=== PATIENT | female | born 2000 | race Two or more races ===

== ENCOUNTER 2022-07-06 05:18 | Emergency (ER) | payer SELFPAY ==
[2022-07-06] MEDS ORDERED: morphine CARPU-JECT 4 MG/1 ML DISP.SYRIN IVPUSH ONE (05:20)
[2022-07-06] MEDS ORDERED: morphine SULFATE 4 MG/ML VIAL IVPUSH ONE (05:20)
[2022-07-06] MEDS ORDERED: SODIUM CHLORIDE 0.9% 500 ML INFUS.BAG IV ONE (05:20)
[2022-07-06] MEDS ORDERED: ONDANSETRON 4 MG/2 ML VIAL IVPUSH ONE (05:20)
[2022-07-06 05:31] VITALS: BP 108/64; PULSE 84; RESP 20; TEMP 98.8; BMI 23.6
[2022-07-06 06:07] LABS: BASO % 0.5 % (0-2.0); EOS % 1.2 % (0-4.5); HEMATOCRIT 43.4 % (32.4-45.2); HEMOGLOBIN 14.7 GM/dL (10.7-15.3); LYMPH % 32.7 % (8-40); MCH 29.7 pg (25.7-33.7); MCHC 33.9 g/dl (32.0-36.0); MEAN CELL VOLUME 87.8 fl (80-96); MEAN PLT VOLUME 10.3 fl (7.5-11.1); MONO % 4.7 % (3.8-10.2); NEUT % 60.9 % (42.8-82.8); PLATELET COUNT 267 10^3/uL (134-434); RBC 4.94 M/mm3 (3.60-5.2); RDW 13.4 % (11.6-15.6); WHITE BLOOD COUNT 8.9 K/mm3 (4.0-10.0)
[2022-07-06 06:24] LABS: ALBUMIN 4.1 g/dl (3.4-5.0); BLOOD UREA NITROGEN 12.3 mg/dL (7-18); CALCIUM 9.5 mg/dL (8.5-10.1)
[2022-07-06] MEDS ORDERED: KETOROLAC TROMETHAMINE 15 MG/ML VIAL IVPUSH ONE (06:26)
[2022-07-06] MEDS ORDERED: KETOROLAC TROMETHAMINE 15 MG/ML VIAL ONE (06:26)
[2022-07-06 06:28] LABS: BILIRUBIN,TOTAL 0.3 mg/dL (0.2-1); CREATININE 0.7 mg/dL (0.55-1.3); TOT PROT 7.4 g/dl (6.4-8.2)
[2022-07-06 12:33] LABS: EPI CELLS >36 /uL (0-25.1); HYALINE CASTS 1 /uL (0-3.1); URINE APPEARANCE CLOUDY; URINE BACTERIA 1692 /uL (0-1359); URINE BILIRUBIN NEGATIVE (NEGATIVE); URINE COLOR YELLOW; URINE GLUCOSE (UA) NEGATIVE (NEGATIVE); URINE KETONE 1+ (NEGATIVE); URINE LEUK ESTERASE NEGATIVE (NEGATIVE); URINE NITRITE POSITIVE (NEGATIVE); URINE PROTEIN NEGATIVE (NEGATIVE); URINE RBC 6 /uL (0-23.9); URINE WBC 9 /uL (0-25.8)
[2022-07-06] MEDS ORDERED: CEPHALEXIN MONOHYDRATE 500 MG CAPSULE (UD) PO ONE (13:00)
[2022-07-06] MEDS ORDERED: CEPHALEXIN MONOHYDRATE 500 MG CAPSULE (UD) ONE (13:02)
== END 2022-07-06 14:24 | disposition home or self-care (01) ==
LOC: JER 05:18
PROC: 3E0333Z Introduction of Anti-inflammatory into Peripheral Vein, Percutaneous Approach (ICD-10-PCS; principal; 2022-07-06)
PROC: 3E033NZ Introduction of Analgesics, Hypnotics, Sedatives into Peripheral Vein, Percutaneous Approach (ICD-10-PCS; 2022-07-06)
PROC: 3E033GC Introduction of Other Therapeutic Substance into Peripheral Vein, Percutaneous Approach (ICD-10-PCS; 2022-07-06)
DX: R10.32 Left lower quadrant pain (principal)
CPT/HCPCS: 36415; 74176-TC; 76830-TC; 80053; 81003; 84703; 85025; 87086; 87186; 99285-25

== ENCOUNTER 2022-07-07 14:29 | Inpatient (IN) | payer OTHER ==
[2022-07-07 14:52] VITALS: RESP 18; BMI 21.4
[2022-07-07] MEDS ORDERED: ONDANSETRON 4 MG/2 ML VIAL IVPUSH ONE (15:26)
[2022-07-07] MEDS ORDERED: ACETAMINOPHEN 1000 MG/100 ML BAG IVPB ONE (15:26)
[2022-07-07] MEDS ORDERED: ONDANSETRON 4 MG/2 ML VIAL ONE (15:30)
[2022-07-07] MEDS ORDERED: ACETAMINOPHEN INJECTION 100 ML IVPB ONE (15:30)
[2022-07-07 15:57] LABS: BASO % 0.3 % (0-2.0); EOS % 0.5 % (0-4.5); HEMATOCRIT 42.5 % (32.4-45.2); HEMOGLOBIN 14.4 GM/dL (10.7-15.3); MCH 30.3 pg (25.7-33.7); MCHC 33.9 g/dl (32.0-36.0); MEAN CELL VOLUME 89.4 fl (80-96); MEAN PLT VOLUME 9.6 fl (7.5-11.1); MONO % 4.6 % (3.8-10.2); NEUT % 85.6 % (42.8-82.8); PLATELET COUNT 241 10^3/uL (134-434); RBC 4.75 M/mm3 (3.60-5.2); RDW 13.5 % (11.6-15.6); WHITE BLOOD COUNT 11.4 K/mm3 (4.0-10.0)
[2022-07-07 16:13] LABS: CHLORIDE 106 mmol/L (98-107); SODIUM 139 mmol/L (136-145)
[2022-07-07 16:15] LABS: ALBUMIN 3.9 g/dl (3.4-5.0); ANION GAP 7 MMOL/L (8-16); CO2 26 mmol/L (21-32); GLUCOSE,RANDOM 87 mg/dL (74-106)
[2022-07-07 16:16] LABS: LIPASE 68 U/L (73-393)
[2022-07-07 16:19] LABS: CREATININE 0.6 mg/dL (0.55-1.3); SGOT/AST 101 U/L (15-37); SGPT/ALT 49 U/L (13-61)
[2022-07-07 16:20] LABS: BILIRUBIN,TOTAL 1.4 mg/dL (0.2-1); TOT PROT 7.4 g/dl (6.4-8.2)
[2022-07-07 16:22] LABS: ALK PHOS 86 U/L (45-117)
[2022-07-07] MEDS ORDERED: morphine CARPU-JECT 4 MG/1 ML DISP.SYRIN IVPUSH ONE (16:25)
[2022-07-07] MEDS ORDERED: morphine SULFATE 4 MG/ML VIAL ONE (16:27)
[2022-07-07 17:03] LABS: EPI CELLS >36 /uL (0-25.1); HYALINE CASTS 0 /uL (0-3.1); URINE APPEARANCE CLOUDY; URINE BACTERIA 2412 /uL (0-1359); URINE BILIRUBIN NEGATIVE (NEGATIVE); URINE COLOR YELLOW; URINE GLUCOSE (UA) NEGATIVE (NEGATIVE); URINE KETONE NEGATIVE (NEGATIVE); URINE LEUK ESTERASE 1+ (NEGATIVE); URINE NITRITE NEGATIVE (NEGATIVE); URINE PROTEIN NEGATIVE (NEGATIVE); URINE RBC 6 /uL (0-23.9); URINE WBC 54 /uL (0-25.8)
[2022-07-07] MEDS ORDERED: SODIUM CHLORIDE 0.9% 500 ML INFUS.BAG IV ONE ×3 (18:51→21:15)
[2022-07-07] MEDS ORDERED: CEFTRIAXONE 1,000 MG in DEXTROSE 5%-WATER - 50 ML IVPB ONE (18:51)
[2022-07-07] MEDS ORDERED: CEFTRIAXONE 1 GM/50 ML BAG ONE (19:08)
[2022-07-07 19:25] LABS: PH,URINE 7.5 (5.0-8.0); URINE APPEARANCE CLEAR; URINE BILIRUBIN NEGATIVE (NEGATIVE); URINE COLOR YELLOW; URINE GLUCOSE (UA) NEGATIVE (NEGATIVE); URINE KETONE NEGATIVE (NEGATIVE); URINE LEUK ESTERASE NEGATIVE (NEGATIVE); URINE NITRITE NEGATIVE (NEGATIVE); URINE PROTEIN NEGATIVE (NEGATIVE)
[2022-07-07] MEDS ORDERED: ACETAMINOPHEN 1000 MG/100 ML BAG IVPB PRN (22:37)
[2022-07-07] MEDS ORDERED: SODIUM CHLORIDE 1,000 ML IV SCH (22:45)
[2022-07-07] MEDS ORDERED: ONDANSETRON 4 MG/2 ML VIAL IVPUSH PRN (23:12)
[2022-07-07] MEDS: SODIUM CHLORIDE 1,000 ML IV SCH (23:21)
[2022-07-08] MEDS: SODIUM CHLORIDE 1,000 ML IV SCH (07:28)
[2022-07-08] MEDS ORDERED: SODIUM CHLORIDE 1,000 ML IV STA (09:04)
[2022-07-08] MEDS ORDERED: cefTRIAXone SODIUM 1 GM VIAL ONE (09:06)
[2022-07-08] MEDS ORDERED: CEFTRIAXONE 1 GM in DEXTROSE 5%-WATER - 50 ML IVPB SCH (10:00)
[2022-07-08 10:41] LABS: HEMATOCRIT 36.6 % (32.4-45.2); HEMOGLOBIN 12.2 GM/dL (10.7-15.3); MCH 29.5 pg (25.7-33.7); MCHC 33.2 g/dl (32.0-36.0); MEAN CELL VOLUME 88.9 fl (80-96); MEAN PLT VOLUME 10.1 fl (7.5-11.1); PLATELET COUNT 199 10^3/uL (134-434); RBC 4.12 M/mm3 (3.60-5.2); RDW 13.6 % (11.6-15.6); WHITE BLOOD COUNT 8.5 K/mm3 (4.0-10.0)
[2022-07-08 10:59] LABS: BLOOD UREA NITROGEN 4.4 mg/dL (7-18); CALCIUM 7.9 mg/dL (8.5-10.1)
[2022-07-08 11:01] LABS: CREATININE 0.4 mg/dL (0.55-1.3)
[2022-07-08 11:04] LABS: TOT PROT 5.9 g/dl (6.4-8.2)
[2022-07-08] MEDS ORDERED: ONDANSETRON 4 MG/2 ML VIAL IVPUSH PRN ×2 (11:48→13:43)
[2022-07-08] MEDS ORDERED: LACTATED RINGERS SOLUTION 1,000 ML IV SCH (12:00)
[2022-07-08] MEDS ORDERED: HEPARIN NA (PORCINE) 5,000 UNITS/ML 1ML VIAL ONE (12:02)
[2022-07-08] MEDS ORDERED: PROPOFOL 20 ML ONE (12:12)
[2022-07-08] MEDS ORDERED: MIDAZOLAM HCL 2 MG/2 ML SINGLE DOSE VIAL ONE (12:12)
[2022-07-08] MEDS ORDERED: ROCURONIUM BROMIDE 50 MG/5 ML SYRINGE ONE (12:12)
[2022-07-08] MEDS ORDERED: DEXAMETHASONE SOD PHOSPHATE 4 MG/1 ML VIAL ONE (12:23)
[2022-07-08] MEDS ORDERED: ONDANSETRON 4 MG/2 ML VIAL ONE (12:23)
[2022-07-08] MEDS ORDERED: BUPIVACAINE HCL/PF 0.25% (2.5MG/ML) 10 ML VIAL ONE ×2 (12:31→12:38)
[2022-07-08] MEDS ORDERED: BUPIVACAINE HCL/PF 0.25% (2.5MG/ML) 10 ML VIAL IJ ONE (12:35)
[2022-07-08] MEDS ORDERED: GLYCOPYRROLATE 0.2 MG/1 ML VIAL ONE (13:22)
[2022-07-08] MEDS ORDERED: NEOSTIGMINE METHYLSULFATE 0.5 MG/ML - 10 ML MDV ONE (13:22)
[2022-07-08] MEDS ORDERED: KETOROLAC TROMETHAMINE 30 MG/1 ML VIAL IVPUSH SCH ×2 (13:30→19:30)
[2022-07-08] MEDS ORDERED: ACETAMINOPHEN 1000 MG/100 ML BAG IVPB PRN (13:43)
[2022-07-08] MEDS ORDERED: SODIUM CHLORIDE 1,000 ML IV SCH (13:43)
[2022-07-08] MEDS ORDERED: ACETAMINOPHEN 1000 MG/100 ML BAG IVPB ONE (23:27)
[2022-07-09] MEDS ORDERED: INSULIN (NOVOLOG) ASPART 100 UNITS/ML 10ML VIAL ONE (06:55)
[2022-07-09] MEDS ORDERED: KETOROLAC TROMETHAMINE 30 MG/1 ML VIAL IVPUSH ONE (10:25)
[2022-07-09] MEDS ORDERED: oxyCODONE HCL 5 MG TABLET PO PRN (11:12)
[2022-07-09] MEDS ORDERED: ACETAMINOPHEN 325 MG TABLET (FP) PO SCH (12:00)
[2022-07-09 13:22] VITALS: BP 103/51; PULSE 74; TEMP 97.5
== END 2022-07-09 15:59 | disposition home or self-care (01) | DRG 263 ==
LOC: JER 14:29 → JERBED 18:51 → J6S 07-08 02:54
PROVIDERS: ADMIT Internal Medicine
PROC: 0FT44ZZ Resection of Gallbladder, Percutaneous Endoscopic Approach (ICD-10-PCS; principal; 2022-07-08 11:00)
DX: K80.12 Calculus of gallbladder with acute and chronic cholecystitis without obstruction (principal); N83.202 Unspecified ovarian cyst, left side; D72.829 Elevated white blood cell count, unspecified; R74.01 Elevation of levels of liver transaminase levels; R94.5 Abnormal results of liver function studies; R33.9 Retention of urine, unspecified; F17.200 Nicotine dependence, unspecified, uncomplicated
CPT/HCPCS: 36415; 71046-TC-FY; 76705-TC; 80053; 81003; 83690; 84484; 85025; 85027; 87086; 88304-TC; 93005; 93010; 94760; 99285-25; C9803-CS; J1644; U0003; U0005

== ENCOUNTER 2023-02-09 16:50 | Emergency (ER) | payer OTHER ==
[2023-02-09 17:00] VITALS: BP 107/58; PULSE 80; RESP 20; TEMP 98.2; BMI 25.6
[2023-02-09] MEDS ORDERED: SODIUM CHLORIDE 0.9% 500 ML INFUS.BAG IV ONE (19:02)
[2023-02-09] MEDS ORDERED: ACETAMINOPHEN 1000 MG/100 ML BAG IVPB ONE (19:02)
[2023-02-09] MEDS ORDERED: ACETAMINOPHEN INJECTION 100 ML IVPB ONE (19:20)
[2023-02-09 19:40] LABS: EOS % 5.3 % (0-4.5); HEMATOCRIT 40.6 % (32.4-45.2); HEMOGLOBIN 13.8 GM/dL (10.7-15.3); LYMPH % 42.1 % (8-40); MCH 29.1 pg (25.7-33.7); MCHC 34.1 g/dl (32.0-36.0); MEAN CELL VOLUME 85.2 fl (80-96); MEAN PLT VOLUME 9.5 fl (7.5-11.1); MONO % 8.1 % (3.8-10.2); NEUT % 43.5 % (42.8-82.8); PLATELET COUNT 244 10^3/uL (134-434); RBC 4.76 M/mm3 (3.60-5.2); RDW 14.8 % (11.6-15.6); WHITE BLOOD COUNT 6.6 K/mm3 (4.0-10.0)
[2023-02-09 19:48] LABS: HCG,QUALITATIVE URINE Negative
[2023-02-09 19:50] LABS: EPI CELLS >36 /uL (0-25.1); HYALINE CASTS 0 /uL (0-3.1); URINE APPEARANCE CLOUDY; URINE BACTERIA >9,000 /uL (0-1359); URINE BILIRUBIN NEGATIVE (NEGATIVE); URINE COLOR DK YELLOW; URINE GLUCOSE (UA) NEGATIVE (NEGATIVE); URINE KETONE NEGATIVE (NEGATIVE); URINE LEUK ESTERASE 2+ (NEGATIVE); URINE NITRITE POSITIVE (NEGATIVE); URINE PROTEIN NEGATIVE (NEGATIVE); URINE RBC 23 /uL (0-23.9); URINE WBC 124 /uL (0-25.8)
[2023-02-09 20:01] LABS: CHLORIDE 105 mmol/L (98-107); SODIUM 137 mmol/L (136-145)
[2023-02-09 20:03] LABS: CALCIUM 9.4 mg/dL (8.5-10.1); GLUCOSE,RANDOM 81 mg/dL (74-106)
[2023-02-09 20:04] LABS: ALBUMIN 4.3 g/dl (3.4-5.0); ANION GAP 4 MMOL/L (8-16); BLOOD UREA NITROGEN 14.1 mg/dL (7-18); CO2 27 mmol/L (21-32)
[2023-02-09] MEDS ORDERED: CEFTRIAXONE 1,000 MG in DEXTROSE 5%-WATER - 50 ML IVPB ONE (20:04)
[2023-02-09 20:07] LABS: CREATININE 0.6 mg/dL (0.55-1.3); SGOT/AST 14 U/L (15-37); SGPT/ALT 20 U/L (13-61)
[2023-02-09 20:08] LABS: BILIRUBIN,TOTAL 0.6 mg/dL (0.2-1)
[2023-02-09 20:10] LABS: ALK PHOS 61 U/L (45-117)
[2023-02-09] MEDS ORDERED: CEFTRIAXONE 1 GM/50 ML BAG ONE (20:26)
== END 2023-02-09 23:27 | disposition home or self-care (01) ==
LOC: JER 16:50
PROC: 3E03329 Introduction of Other Anti-infective into Peripheral Vein, Percutaneous Approach (ICD-10-PCS; principal; 2023-02-09)
PROC: 3E033GC Introduction of Other Therapeutic Substance into Peripheral Vein, Percutaneous Approach (ICD-10-PCS; 2023-02-09)
DX: N39.0 Urinary tract infection, site not specified (principal); K52.9 Noninfective gastroenteritis and colitis, unspecified; R10.30 Lower abdominal pain, unspecified
CPT/HCPCS: 36415; 74177-TC; 80053; 81003; 84702; 84703; 85025; 87086; 87186; 99285-25; Q9967

== ENCOUNTER 2023-02-10 21:21 | Emergency (ER) | payer OTHER ==
[2023-02-10 21:38] VITALS: BP 116/68; PULSE 86; RESP 18; TEMP 98.1; BMI 21.9
[2023-02-10] MEDS ORDERED: ACETAMINOPHEN 325 MG TABLET (FP) PO ONE (22:01)
[2023-02-10] MEDS ORDERED: ONDANSETRON *ODT* 4 MG TABLET SL ONE (22:01)
[2023-02-10] MEDS ORDERED: ONDANSETRON *ODT* 4 MG TABLET ONE (22:14)
[2023-02-10] MEDS ORDERED: ACETAMINOPHEN 325 MG TABLET (FP) ONE (22:14)
[2023-02-10] MEDS ORDERED: SULFAMETHOXAZOLE/TRIMETHOPRIM 800MG/160MG D.S. TABLET PO ONE (22:37)
[2023-02-10] MEDS ORDERED: SULFAMETHOXAZOLE/TRIMETHOPRIM 800MG/160MG D.S. TABLET ONE (22:45)
== END 2023-02-11 00:27 | disposition home or self-care (01) ==
LOC: JER 21:21
DX: R10.30 Lower abdominal pain, unspecified (principal); R11.0 Nausea
CPT/HCPCS: 76830-TC; 99284-25; Q0162

== ENCOUNTER 2023-05-09 01:53 | Emergency (ER) | payer OTHER ==
[2023-05-09 02:09] VITALS: BP 108/68; PULSE 78; RESP 18; TEMP 98.5; BMI 24.1
[2023-05-09] MEDS ORDERED: SODIUM CHLORIDE 1,000 ML IV STA (03:06)
[2023-05-09] MEDS ORDERED: FAMOTIDINE 20 MG/50 ML IVPB 20 MG/50 ML MG IVPB ONE (03:06)
[2023-05-09] MEDS ORDERED: ACETAMINOPHEN 1000 MG/100 ML BAG IVPB ONE (03:06)
[2023-05-09] MEDS ORDERED: ACETAMINOPHEN INJECTION 100 ML IVPB ONE (03:10)
[2023-05-09] MEDS ORDERED: FAMOTIDINE 10 MG/ML VIAL IVPB ONE (03:11)
[2023-05-09 03:43] LABS: BASO % 0.4 % (0-2.0); EOS % 3.2 % (0-4.5); HEMATOCRIT 41.9 % (32.4-45.2); HEMOGLOBIN 14.6 GM/dL (10.7-15.3); LYMPH % 34.2 % (8-40); MCHC 34.8 g/dl (32.0-36.0); MEAN PLT VOLUME 8.9 fl (7.5-11.1); MONO % 6.1 % (3.8-10.2); NEUT % 56.1 % (42.8-82.8); PLATELET COUNT 273 10^3/uL (134-434); RBC 4.87 M/mm3 (3.60-5.2); RDW 13.8 % (11.6-15.6); WHITE BLOOD COUNT 8.7 K/mm3 (4.0-10.0)
[2023-05-09 03:49] LABS: INR 1.07 (0.83-1.09); PROTHROMBIN TIME (PATIENT) 12.4 SEC (9.7-13.0)
[2023-05-09 03:52] LABS: ACTIVATED PTT 32.8 SECONDS (25.2-36.5)
[2023-05-09 04:04] LABS: CHLORIDE 106 mmol/L (98-107); POTASSIUM 4.5 mmol/L (3.5-5.1); SODIUM 138 mmol/L (136-145)
[2023-05-09 04:06] LABS: CALCIUM 9.4 mg/dL (8.5-10.1); GLUCOSE,RANDOM 84 mg/dL (74-106); LIPASE 97 U/L (73-393)
[2023-05-09 04:07] LABS: ALBUMIN 4.2 g/dl (3.4-5.0); ANION GAP 7 MMOL/L (8-16); BLOOD UREA NITROGEN 11.3 mg/dL (7-18); CO2 24 mmol/L (21-32)
[2023-05-09 04:09] LABS: CREATININE 0.7 mg/dL (0.55-1.3); SGOT/AST 22 U/L (15-37); SGPT/ALT 22 U/L (13-61)
[2023-05-09 04:11] LABS: BILIRUBIN,TOTAL 0.6 mg/dL (0.2-1)
[2023-05-09 04:13] LABS: ALK PHOS 64 U/L (45-117)
[2023-05-09] MEDS ORDERED: SUCRALFATE 1 GM TABLET (FP) PO STA (04:34)
[2023-05-09] MEDS ORDERED: SUCRALFATE 1 GM TABLET (FP) ONE (04:56)
[2023-05-09 05:30] LABS: EPI CELLS >36 /uL (0-25.1); HYALINE CASTS 1 /uL (0-3.1); PH,URINE 5.5 (5.0-8.0); URINE APPEARANCE CLEAR; URINE BACTERIA >9,000 /uL (0-1359); URINE BILIRUBIN NEGATIVE (NEGATIVE); URINE COLOR YELLOW; URINE GLUCOSE (UA) NEGATIVE (NEGATIVE); URINE KETONE TRACE (NEGATIVE); URINE LEUK ESTERASE TRACE (NEGATIVE); URINE NITRITE NEGATIVE (NEGATIVE); URINE PROTEIN NEGATIVE (NEGATIVE); URINE RBC 18 /uL (0-23.9); URINE UROBILINOGEN 0.2 mg/dL (0.2-1.0); URINE WBC 45 /uL (0-25.8)
[2023-05-09] MEDS ORDERED: CEFTRIAXONE 1,000 MG in DEXTROSE 5%-WATER - 50 ML IVPB ONE (05:54)
[2023-05-09] MEDS ORDERED: CEFTRIAXONE 1 GM/50 ML BAG ONE (06:09)
== END 2023-05-09 06:50 | disposition home or self-care (01) ==
LOC: JER 01:53
PROC: 3E03329 Introduction of Other Anti-infective into Peripheral Vein, Percutaneous Approach (ICD-10-PCS; principal; 2023-05-09)
PROC: 3E033GC Introduction of Other Therapeutic Substance into Peripheral Vein, Percutaneous Approach (ICD-10-PCS; 2023-05-09)
PROC: 3E033GC Introduction of Other Therapeutic Substance into Peripheral Vein, Percutaneous Approach (ICD-10-PCS; 2023-05-09)
PROC: 3E0337Z Introduction of Electrolytic and Water Balance Substance into Peripheral Vein, Percutaneous Approach (ICD-10-PCS; 2023-05-09)
DX: R10.31 Right lower quadrant pain (principal); R10.32 Left lower quadrant pain; R11.2 Nausea with vomiting, unspecified; R42 Dizziness and giddiness
CPT/HCPCS: 36415; 74177-TC; 80053; 81003; 83605; 83690; 84702; 85025; 85610; 85730; 86850; 86900; 86901; 87086; 87186; 93005; 93010; 99285-25; Q9967

== ENCOUNTER 2023-06-11 18:11 | Emergency (ER) | payer OTHER ==
[2023-06-11 18:16] VITALS: BP 106/73; PULSE 73; RESP 18; TEMP 98.6; BMI 23.8
[2023-06-11 21:17] LABS: EPI CELLS >36 /uL (0-25.1); HYALINE CASTS 0 /uL (0-3.1); URINE APPEARANCE CLEAR; URINE BACTERIA >9,000 /uL (0-1359); URINE BILIRUBIN NEGATIVE (NEGATIVE); URINE COLOR YELLOW; URINE GLUCOSE (UA) NEGATIVE (NEGATIVE); URINE KETONE NEGATIVE (NEGATIVE); URINE LEUK ESTERASE TRACE (NEGATIVE); URINE NITRITE NEGATIVE (NEGATIVE); URINE PROTEIN NEGATIVE (NEGATIVE); URINE RBC 8 /uL (0-23.9); URINE UROBILINOGEN 0.2 mg/dL (0.2-1.0); URINE WBC 29 /uL (0-25.8)
[2023-06-11] MEDS ORDERED: ONDANSETRON *ODT* 4 MG TABLET SL ONE (21:35)
[2023-06-11] MEDS ORDERED: ONDANSETRON *ODT* 4 MG TABLET ONE (21:40)
[2023-06-11] MEDS ORDERED: NITROFURANTOIN MACROCRYSTAL 50 MG CAPSULE (FP) ONE (21:40)
[2023-06-11] MEDS ORDERED: NITROFURANTOIN MACROCRYSTAL 50 MG CAPSULE (FP) PO ONE (21:45)
== END 2023-06-11 21:47 | disposition home or self-care (01) ==
LOC: JER 18:11
DX: R11.2 Nausea with vomiting, unspecified (principal); N39.0 Urinary tract infection, site not specified; R31.9 Hematuria, unspecified; G43.909 Migraine, unspecified, not intractable, without status migrainosus
CPT/HCPCS: 81003; 84703; 99283-25; Q0162

== ENCOUNTER 2023-12-09 19:20 | Emergency (ER) | payer SELFPAY ==
[2023-12-09 19:33] VITALS: BP 110/58; PULSE 83; RESP 16; TEMP 98.2; BMI 23.8
[2023-12-09] MEDS ORDERED: ACETAMINOPHEN 325 MG TABLET (FP) ONE (20:04)
[2023-12-09] MEDS ORDERED: ACETAMINOPHEN 500 MG TABLET (FP) ONE (20:09)
[2023-12-09] MEDS: ACETAMINOPHEN 500 MG TABLET (FP) PO ONE (20:25)
[2023-12-09 20:32] LABS: HCG,QUALITATIVE URINE Positive
[2023-12-09 20:33] LABS: URINE APPEARANCE CLEAR; URINE BILIRUBIN NEGATIVE (NEGATIVE); URINE COLOR YELLOW; URINE GLUCOSE (UA) NEGATIVE (NEGATIVE); URINE KETONE NEGATIVE (NEGATIVE); URINE LEUK ESTERASE NEGATIVE (NEGATIVE); URINE NITRITE NEGATIVE (NEGATIVE); URINE PROTEIN NEGATIVE (NEGATIVE)
[2023-12-09 20:39] LABS: BASO % 0.4 % (0-2.0); EOS % 1.6 % (0-4.5); HEMATOCRIT 40.8 % (32.4-45.2); HEMOGLOBIN 13.7 GM/dL (10.7-15.3); LYMPH % 34.7 % (8-40); MCH 29.9 pg (25.7-33.7); MCHC 33.5 g/dl (32.0-36.0); MEAN CELL VOLUME 89.4 fl (80-96); MEAN PLT VOLUME 9.3 fl (7.5-11.1); MONO % 6.8 % (3.8-10.2); NEUT % 56.5 % (42.8-82.8); PLATELET COUNT 265 10^3/uL (134-434); RBC 4.57 M/mm3 (3.60-5.2); RDW 14.6 % (11.6-15.6); WHITE BLOOD COUNT 8.2 K/mm3 (4.0-10.0)
[2023-12-09 20:58] LABS: POTASSIUM 3.8 mmol/L (3.5-5.1)
[2023-12-09 21:06] LABS: BILIRUBIN,TOTAL 0.6 mg/dL (0.2-1)
[2023-12-09 21:11] LABS: ALBUMIN 3.9 g/dl (3.4-5.0); CALCIUM 8.9 mg/dL (8.5-10.1)
[2023-12-09 21:12] LABS: BLOOD UREA NITROGEN 8.4 mg/dL (7-18)
[2023-12-09 21:14] LABS: CREATININE 0.7 mg/dL (0.55-1.3)
[2023-12-09 21:16] LABS: TOT PROT 7.5 g/dl (6.4-8.2)
== END 2023-12-10 00:15 | disposition home or self-care (01) ==
LOC: JER 19:20 → JERFT 19:20
DX: O20.9 Hemorrhage in early pregnancy, unspecified (principal); Z3A.01 Less than 8 weeks gestation of pregnancy
CPT/HCPCS: 36415; 76817-TC; 80053; 81003; 84702; 84703; 85025; 86850; 86900; 86901; 87077; 87086; 87186; 99284-25

== ENCOUNTER 2023-12-12 10:35 | Emergency (ER) | payer SELFPAY ==
[2023-12-12 10:48] VITALS: BP 118/74; PULSE 77; RESP 16; TEMP 98.5
[2023-12-12 10:53] VITALS: BMI 22.7
== END 2023-12-12 12:46 | disposition home or self-care (01) ==
LOC: JER 10:35 → JERFT 10:35
DX: O26.891 Other specified pregnancy related conditions, first trimester (principal); R10.9 Unspecified abdominal pain; Z3A.01 Less than 8 weeks gestation of pregnancy
CPT/HCPCS: 36415; 84702; 99283-25

== ENCOUNTER 2023-12-19 19:01 | Observation (INO) | payer SELFPAY ==
[2023-12-19 20:05] LABS: HCG,QUALITATIVE URINE Positive
[2023-12-19 20:07] LABS: URINE APPEARANCE CLEAR; URINE BILIRUBIN NEGATIVE (NEGATIVE); URINE COLOR YELLOW; URINE GLUCOSE (UA) NEGATIVE (NEGATIVE); URINE KETONE NEGATIVE (NEGATIVE); URINE LEUK ESTERASE NEGATIVE (NEGATIVE); URINE NITRITE NEGATIVE (NEGATIVE); URINE PROTEIN NEGATIVE (NEGATIVE)
[2023-12-19] MEDS ORDERED: FAMOTIDINE 20 MG/50 ML IVPB 20 MG/50 ML MG IVPB ONE (20:16)
[2023-12-19] MEDS ORDERED: ACETAMINOPHEN INJECTION 100 ML IVPB ONE (20:16)
[2023-12-19] MEDS: ACETAMINOPHEN 1000 MG/100 ML BAG IVPB ONE (20:30)
[2023-12-19] MEDS: LACTATED RINGERS SOLUTION 1000 ML INFUS.BAG IV ONE (20:30)
[2023-12-19] MEDS: FAMOTIDINE 20 MG/50 ML IVPB 20 MG/50 ML MG IVPB ONE (20:30)
[2023-12-19 20:47] LABS: HEMATOCRIT 42.3 % (32.4-45.2); MCH 31.7 pg (25.7-33.7); MCHC 35.4 g/dl (32.0-36.0); MEAN CELL VOLUME 89.6 fl (80-96); MEAN PLT VOLUME 9.8 fl (7.5-11.1); PLATELET COUNT 223 10^3/uL (134-434); RBC 4.72 M/mm3 (3.60-5.2); RDW 14.6 % (11.6-15.6); WHITE BLOOD COUNT 5.6 K/mm3 (4.0-10.0)
[2023-12-19 21:03] LABS: POTASSIUM 4.7 mmol/L (3.5-5.1)
[2023-12-19 21:05] LABS: CALCIUM 9.3 mg/dL (8.5-10.1)
[2023-12-19 21:06] LABS: ALBUMIN 4.3 g/dl (3.4-5.0)
[2023-12-19 21:08] LABS: CREATININE 0.5 mg/dL (0.55-1.3)
[2023-12-19 21:10] LABS: BILIRUBIN,TOTAL 0.6 mg/dL (0.2-1); TOT PROT 8.2 g/dl (6.4-8.2)
[2023-12-19] MEDS ORDERED: MAG HYDROX/AL HYDROX/SIMETH 30 ML UNIT-DOSE CUP ONE (23:45)
[2023-12-20] MEDS: MAG HYDROX/AL HYDROX/SIMETH -MYLANTA- ORAL SUSPENSION PO ONE (00:21)
[2023-12-20] MEDS: LACTATED RINGERS SOLUTION 1000 ML INFUS.BAG IV ONE (00:21)
[2023-12-20] MEDS: SODIUM CHLORIDE 1,000 ML IV SCH (02:01)
[2023-12-20 02:28] VITALS: BMI 22.8
[2023-12-20] MEDS: PRENATAL VITAMINS W/ FOLIC ACID TABLET (FP) PO SCH (10:07)
[2023-12-20 13:08] LABS: BASO % 0.8 % (0-2.0); EOS % 3.6 % (0-4.5); HEMATOCRIT 39.1 % (32.4-45.2); HEMOGLOBIN 13.4 GM/dL (10.7-15.3); LYMPH % 43.8 % (8-40); MCH 30.6 pg (25.7-33.7); MCHC 34.2 g/dl (32.0-36.0); MEAN CELL VOLUME 89.5 fl (80-96); MEAN PLT VOLUME 10.1 fl (7.5-11.1); MONO % 7.2 % (3.8-10.2); NEUT % 44.6 % (42.8-82.8); PLATELET COUNT 205 10^3/uL (134-434); RBC 4.37 M/mm3 (3.60-5.2); RDW 14.6 % (11.6-15.6); WHITE BLOOD COUNT 5.8 K/mm3 (4.0-10.0)
[2023-12-20 13:24] LABS: POTASSIUM 4.1 mmol/L (3.5-5.1)
[2023-12-20 13:29] LABS: CALCIUM 8.8 mg/dL (8.5-10.1)
[2023-12-20 13:30] LABS: ALBUMIN 3.6 g/dl (3.4-5.0); BLOOD UREA NITROGEN 8.4 mg/dL (7-18); MAGNESIUM 1.8 mg/dL (1.8-2.4)
[2023-12-20 13:33] LABS: CREATININE 0.6 mg/dL (0.55-1.3)
[2023-12-20 13:35] LABS: BILIRUBIN,TOTAL 0.6 mg/dL (0.2-1)
[2023-12-20 13:36] LABS: TOT PROT 6.6 g/dl (6.4-8.2)
[2023-12-20] MEDS: CEPHALEXIN MONOHYDRATE 500 MG CAPSULE (UD) PO SCH (21:30)
[2023-12-21 08:31] LABS: TOT PROT 6.9 g/dl (6.4-8.2)
[2023-12-21 08:32] LABS: BILIRUBIN,TOTAL 0.4 mg/dL (0.2-1)
[2023-12-21 08:37] LABS: BLOOD UREA NITROGEN 7.2 mg/dL (7-18)
[2023-12-21 08:39] LABS: ALBUMIN 3.6 g/dl (3.4-5.0)
[2023-12-21 08:42] LABS: CALCIUM 8.7 mg/dL (8.5-10.1); CREATININE 0.6 mg/dL (0.55-1.3); MAGNESIUM 1.7 mg/dL (1.8-2.4)
[2023-12-21 09:07] LABS: BASO % 0.6 % (0-2.0); EOS % 3.2 % (0-4.5); HEMATOCRIT 40.3 % (32.4-45.2); HEMOGLOBIN 13.4 GM/dL (10.7-15.3); MCHC 33.4 g/dl (32.0-36.0); MEAN PLT VOLUME 10.3 fl (7.5-11.1); MONO % 6.3 % (3.8-10.2); NEUT % 42.9 % (42.8-82.8); PLATELET COUNT 215 10^3/uL (134-434); RBC 4.47 M/mm3 (3.60-5.2); RDW 13.9 % (11.6-15.6); WHITE BLOOD COUNT 6.2 K/mm3 (4.0-10.0)
[2023-12-21] MEDS ORDERED: LORazepam 0.5 MG TABLET PO PRN (10:33)
[2023-12-21] MEDS: ACETAMINOPHEN 500 MG TABLET (FP) PO ONE (11:01)
[2023-12-21] MEDS: LORazepam 0.5 MG TABLET PO ONE (11:02)
[2023-12-21] MEDS: MAGNESIUM 1GM/D5W - 1 GM/100 ML IVPB IVPB ONE (11:02)
[2023-12-21] MEDS: SODIUM CHLORIDE 1,000 ML IV SCH (11:05)
[2023-12-21] MEDS: PIPERACILLIN/TAZOB 2.25 GM 2.25 GM in DEXTROSE 5%-WATER - 50 ML IVPB ONE (12:11)
[2023-12-21] MEDS: PIPERACILLIN/TAZOB 3.375 GM 3.375 GM in DEXTROSE 5%-WATER - 50 ML IVPB ONE (12:28)
[2023-12-21] MEDS ORDERED: PIPERACILLIN/TAZOB 3.375 GM 3.375 GM in DEXTROSE 5%-WATER - 50 ML IVPB SCH (22:00)
[2023-12-21] MEDS: PIPERACILLIN/TAZOB 3.375 GM 3.375 GM in DEXTROSE 5%-WATER - 50 ML IVPB SCH (22:53)
[2023-12-22] MEDS ORDERED: diphenhydrAMINE HCL 50 MG CAPSULE PO ONE (04:46)
[2023-12-22] MEDS: diphenhydrAMINE HCL 25 MG CAPSULE (FP) PO ONE (04:56)
[2023-12-22 05:58] VITALS: TEMP 98.4
[2023-12-22 07:46] LABS: BASO % 0.9 % (0-2.0); EOS % 2.9 % (0-4.5); HEMATOCRIT 39.5 % (32.4-45.2); HEMOGLOBIN 13.4 GM/dL (10.7-15.3); LYMPH % 39.6 % (8-40); MCH 30.4 pg (25.7-33.7); MCHC 33.8 g/dl (32.0-36.0); MEAN CELL VOLUME 89.7 fl (80-96); MEAN PLT VOLUME 9.8 fl (7.5-11.1); MONO % 5.3 % (3.8-10.2); NEUT % 51.3 % (42.8-82.8); PLATELET COUNT 217 10^3/uL (134-434); RDW 14.2 % (11.6-15.6); WHITE BLOOD COUNT 7.1 K/mm3 (4.0-10.0)
[2023-12-22 07:56] LABS: POTASSIUM 4.1 mmol/L (3.5-5.1)
[2023-12-22 07:59] LABS: ALBUMIN 3.6 g/dl (3.4-5.0); CALCIUM 8.5 mg/dL (8.5-10.1)
[2023-12-22 08:00] LABS: BLOOD UREA NITROGEN 11.7 mg/dL (7-18); MAGNESIUM 2.2 mg/dL (1.8-2.4)
[2023-12-22 08:03] LABS: CREATININE 0.6 mg/dL (0.55-1.3)
[2023-12-22 08:04] LABS: BILIRUBIN,TOTAL 0.7 mg/dL (0.2-1); TOT PROT 6.9 g/dl (6.4-8.2)
[2023-12-22 10:04] VITALS: BP 94/65; PULSE 88; RESP 20
[2023-12-22] MEDS: CEPHALEXIN MONOHYDRATE 500 MG CAPSULE (UD) PO SCH (10:04)
== END 2023-12-22 11:38 | disposition home or self-care (01) ==
LOC: JER 19:01 → JERBED 22:56 → J7W 12-20 01:22
PROVIDERS: ADMIT Internal Medicine; ATTEND Internal Medicine
PROC: 3E033NZ Introduction of Analgesics, Hypnotics, Sedatives into Peripheral Vein, Percutaneous Approach (ICD-10-PCS; principal; 2023-12-19)
PROC: 3E033GC Introduction of Other Therapeutic Substance into Peripheral Vein, Percutaneous Approach (ICD-10-PCS; 2023-12-19)
PROC: 3E0337Z Introduction of Electrolytic and Water Balance Substance into Peripheral Vein, Percutaneous Approach (ICD-10-PCS; 2023-12-19)
PROC: 3E03329 Introduction of Other Anti-infective into Peripheral Vein, Percutaneous Approach (ICD-10-PCS; 2023-12-19)
DX: R82.71 Bacteriuria (principal); R10.31 Right lower quadrant pain; Z3A.01 Less than 8 weeks gestation of pregnancy; Z87.59 Personal history of other complications of pregnancy, childbirth and the puerperium; F17.200 Nicotine dependence, unspecified, uncomplicated; Z90.49 Acquired absence of other specified parts of digestive tract
CPT/HCPCS: 0241U-QW; 36415; 72195-TC; 76856-TC; 80053; 81003; 83690; 83735; 84702; 84703; 85025; 85027; 86850; 86900; 86901; 87040; 87086; 87491; 87591; 87661; 93005; 93010; 99285-25; G0378; J0131

== ENCOUNTER 2023-12-25 08:47 | Emergency (ER) | payer SELFPAY ==
[2023-12-25 09:12] VITALS: BP 101/58; PULSE 83; RESP 16; TEMP 98.2; BMI 24.7
[2023-12-25 10:42] LABS: URINE APPEARANCE CLEAR; URINE BILIRUBIN NEGATIVE (NEGATIVE); URINE COLOR YELLOW; URINE GLUCOSE (UA) NEGATIVE (NEGATIVE); URINE KETONE 2+ (NEGATIVE); URINE LEUK ESTERASE NEGATIVE (NEGATIVE); URINE NITRITE NEGATIVE (NEGATIVE); URINE PROTEIN NEGATIVE (NEGATIVE); URINE UROBILINOGEN 0.2 mg/dL (0.2-1.0)
[2023-12-25] MEDS ORDERED: ACETAMINOPHEN INJECTION 100 ML IVPB ONE (10:48)
[2023-12-25] MEDS: SODIUM CHLORIDE 0.9% 1000 ML INFUS.BAG IV ONE (12:01)
[2023-12-25] MEDS: ACETAMINOPHEN 1000 MG/100 ML BAG IVPB ONE (12:02)
[2023-12-25 12:28] LABS: BASO % 0.7 % (0-2.0); EOS % 2.1 % (0-4.5); HEMATOCRIT 38.7 % (32.4-45.2); HEMOGLOBIN 13.1 GM/dL (10.7-15.3); LYMPH % 41.2 % (8-40); MCH 30.2 pg (25.7-33.7); MEAN PLT VOLUME 9.8 fl (7.5-11.1); MONO % 6.1 % (3.8-10.2); NEUT % 49.9 % (42.8-82.8); PLATELET COUNT 245 10^3/uL (134-434); RBC 4.35 M/mm3 (3.60-5.2); WHITE BLOOD COUNT 7.5 K/mm3 (4.0-10.0)
[2023-12-25 12:53] LABS: POTASSIUM 3.8 mmol/L (3.5-5.1)
[2023-12-25 12:56] LABS: CALCIUM 9.2 mg/dL (8.5-10.1)
[2023-12-25 12:57] LABS: ALBUMIN 4.1 g/dl (3.4-5.0)
[2023-12-25 13:00] LABS: CREATININE 0.5 mg/dL (0.55-1.3)
[2023-12-25 13:01] LABS: BILIRUBIN,TOTAL 0.8 mg/dL (0.2-1); TOT PROT 7.4 g/dl (6.4-8.2)
== END 2023-12-25 15:19 | disposition home or self-care (01) ==
LOC: JER 08:47
PROC: 3E033NZ Introduction of Analgesics, Hypnotics, Sedatives into Peripheral Vein, Percutaneous Approach (ICD-10-PCS; principal; 2023-12-25)
DX: O02.1 Missed abortion (principal)
CPT/HCPCS: 36415; 76817-TC; 80053; 81003; 84702; 84703; 85025; 87086; 99284-25; J0131

== ENCOUNTER 2024-01-09 15:57 | Emergency (ER) | payer OTHER ==
[2024-01-09 16:05] VITALS: BP 102/60; PULSE 76; RESP 20; TEMP 97.7; BMI 22.6
[2024-01-09 17:05] LABS: BASO % 0.5 % (0-2.0); EOS % 3.3 % (0-4.5); HEMATOCRIT 38.2 % (32.4-45.2); HEMOGLOBIN 13.4 GM/dL (10.7-15.3); LYMPH % 42.9 % (8-40); MCH 30.7 pg (25.7-33.7); MEAN CELL VOLUME 87.6 fl (80-96); MEAN PLT VOLUME 8.5 fl (7.5-11.1); MONO % 5.9 % (3.8-10.2); NEUT % 47.4 % (42.8-82.8); PLATELET COUNT 271 10^3/uL (134-434); RBC 4.36 M/mm3 (3.60-5.2); RDW 13.5 % (11.6-15.6); WHITE BLOOD COUNT 6.3 K/mm3 (4.0-10.0)
[2024-01-09 17:14] LABS: HCG,QUALITATIVE URINE Positive
[2024-01-09 17:20] LABS: ACTIVATED PTT 33.5 SECONDS (25.2-36.5); INR 1.14 (0.83-1.09); PROTHROMBIN TIME (PATIENT) 13.2 SEC (9.7-13.0)
[2024-01-09 17:45] LABS: EPI CELLS 29 /uL (0-25.1); HYALINE CASTS 0 /uL (0-3.1); URINE APPEARANCE CLEAR; URINE BACTERIA 832 /uL (0-1359); URINE BILIRUBIN NEGATIVE (NEGATIVE); URINE COLOR DK YELLOW; URINE GLUCOSE (UA) NEGATIVE (NEGATIVE); URINE KETONE TRACE (NEGATIVE); URINE LEUK ESTERASE NEGATIVE (NEGATIVE); URINE NITRITE NEGATIVE (NEGATIVE); URINE PROTEIN NEGATIVE (NEGATIVE); URINE RBC 12 /uL (0-23.9); URINE UROBILINOGEN 0.2 mg/dL (0.2-1.0); URINE WBC 10 /uL (0-25.8)
[2024-01-09] MEDS: MISOPROSTOL 200 MCG TABLET NR ONE (20:47)
== END 2024-01-09 20:52 | disposition home or self-care (01) ==
LOC: JER 15:57
DX: O02.1 Missed abortion (principal)
CPT/HCPCS: 36415; 76817-TC; 81003; 84702; 84703; 85025; 85610; 85730; 86850; 86900; 86901; 99284-25

== ENCOUNTER 2024-01-10 12:27 | Emergency (ER) | payer OTHER ==
[2024-01-10 12:55] VITALS: TEMP 98.5; BMI 53.4
[2024-01-10] MEDS ORDERED: ACETAMINOPHEN INJECTION 100 ML IVPB ONE (13:35)
[2024-01-10] MEDS: SODIUM CHLORIDE 1,000 ML IV STA (13:46)
[2024-01-10] MEDS: ACETAMINOPHEN 1000 MG/100 ML BAG IVPB ONE (13:46)
[2024-01-10 14:07] LABS: BASO % 0.4 % (0-2.0); EOS % 3.3 % (0-4.5); HEMATOCRIT 35.9 % (32.4-45.2); HEMOGLOBIN 12.2 GM/dL (10.7-15.3); LYMPH % 28.4 % (8-40); MCH 29.9 pg (25.7-33.7); MCHC 33.9 g/dl (32.0-36.0); MEAN CELL VOLUME 88.2 fl (80-96); MEAN PLT VOLUME 8.9 fl (7.5-11.1); NEUT % 61.9 % (42.8-82.8); PLATELET COUNT 234 10^3/uL (134-434); RBC 4.07 M/mm3 (3.60-5.2); RDW 13.6 % (11.6-15.6); WHITE BLOOD COUNT 8.7 K/mm3 (4.0-10.0)
[2024-01-10 14:22] LABS: CALCIUM 8.5 mg/dL (8.5-10.1)
[2024-01-10 14:23] LABS: ALBUMIN 3.4 g/dl (3.4-5.0); BLOOD UREA NITROGEN 14.2 mg/dL (7-18); MAGNESIUM 1.8 mg/dL (1.8-2.4)
[2024-01-10 14:25] LABS: PHOSPHOROUS 3.4 mg/dL (2.5-4.9)
[2024-01-10 14:26] LABS: CREATININE 0.6 mg/dL (0.55-1.3)
[2024-01-10 14:27] LABS: BILIRUBIN,TOTAL 0.3 mg/dL (0.2-1); TOT PROT 6.2 g/dl (6.4-8.2)
[2024-01-10 16:07] VITALS: BP 89/57; PULSE 70; RESP 18
== END 2024-01-10 17:05 | disposition home or self-care (01) ==
LOC: JER 12:27
PROC: 3E033NZ Introduction of Analgesics, Hypnotics, Sedatives into Peripheral Vein, Percutaneous Approach (ICD-10-PCS; principal; 2024-01-10)
PROC: 3E0337Z Introduction of Electrolytic and Water Balance Substance into Peripheral Vein, Percutaneous Approach (ICD-10-PCS; 2024-01-10)
DX: O03.6 Delayed or excessive hemorrhage following complete or unspecified spontaneous abortion (principal); R10.2 Pelvic and perineal pain
CPT/HCPCS: 36415; 80053; 83735; 84100; 84702; 85025; 99284-25; J0131